=== PATIENT | male | born 1975 | race Two or more races ===

== ENCOUNTER 2018-01-16 09:49 | Inpatient (IN) | payer SELFPAY ==
[~2018-01-16] VITALS: Ht 170.2 cm; Wt 63.3 kg
--- NOTE | 2018-01-16 10:20 | EKG ---
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
[2018-01-16 10:41] LABS: BASO % 1 % (0-3); EOS # 0.4 x10^3/uL (0.0-0.7); EOS % 5 % (0-3); HEMOGLOBIN 7.7 g/dL (13.0-17.5); LYMPH # 0.7 x10^3/uL (1.0-4.8); LYMPH % 9 % (24-48); MEAN CORPUSCULAR HEMOGLOBIN 33 pg (25-35); MEAN CORPUSCULAR HGB CONC 37 g/dL (31-37); MEAN CORPUSCULAR VOLUME 90 fL (79-100); MONO # 0.7 x10^3/uL (0.0-1.1); MONO % 10 % (0-9); NEUT # 5.5 x10^3uL (1.8-7.7); NEUT % 75 % (31-73); PLATELET COUNT 158 x10^3/uL (140-400); RED BLOOD COUNT 2.31 x10^6/uL (4.30-5.70); RED CELL DISTRIBUTION WIDTH 13.4 % (11.5-14.5); WHITE BLOOD COUNT 7.3 x10^3/uL (4.0-11.0)
[2018-01-16 10:44] LABS: HEMATOCRIT 20.7 % (39.0-53.0)
--- NOTE | 2018-01-16 10:45 | RAD ---
CHEST AP ONLY dated 01/16/2018 10:05 AM. Comparison: None. Clinical Indication: Pain, dialysis pt. Spoke No Greek. . Findings: Single upright portable exam performed. Heart and mediastinal contours are within normal limits. There is a dual lumen dialysis catheter in place with distal tip projected to the right atrium. Lungs are somewhat hyperinflated but otherwise clear. No consolidation or pleural effusion. No pneumothorax. Impression: No acute radiographic abnormality. Electronically signed by: Rod Allen MD (01/16/2018 10:42 AM) [facility]
--- NOTE | 2018-01-16 10:51 | PHYS DOC ---
Adult General Chief Complaint Chief Complaint: weakness HPI HPI This is a pleasant 42-year-old male presenting to the emergency Department with "too many toxins in the blood". He primarily complains of generalized weakness throughout his body. He describes having mild burning sensation bilaterally in lower extremities which has been present for multiple months. He has a history of being dialyzed in the past at [facility] but having difficulty setting this up regularly as an outpatient. He reports urinating this morning and had a last bowel movement yesterday. Past medical history: History of hernia status post repair, history of CHF, history of kidney disease. Past surgical history: Hernia repair Social history: Denies smoking drinking or IV drug use Allergies: None Review of systems is negative for chest pain shortness of breath abdominal pain nausea vomiting fevers or chills. He denies neck stiffness confusion meningismus. All other review of systems is negative unless otherwise noted in history of present illness. ED course: 42-year-old gentleman with a history of kidney disease presenting to the emergency department with generalized weakness. On arrival the patient is afebrile with a normal heart rate. Saturating well on room air. On examination lungs are clear bilaterally. Abdomen is soft and nontender. Otherwise unremarkable examination. EKG obtained and reviewed by myself shows sinus rhythm with a regular rate. ST segments show mild T-wave inversions in the leads V4 and V5. No ST elevation. Does not meet STEMI criteria. Isolated ST depression in lead V4. Repolarization abnormality present. Blood work obtained along with chest x-ray. Hemoglobin is low at 7.7. No previous for comparison available this time. Acute renal failure present. I spoke with the training consultant Dr. alexis. I also spoke with Dr. Morales is the admitting hospitalist who accepts the patient for admission. Basic bridge orders placed. Review of Systems Review of Systems SEE ABOVE. Current Medications Current Medications Current Medications Medications (Trade) Dose Ordered Sig/Fer Start Time Stop Time Status Last Admin Dose Admin Morphine Sulfate (Morphine Sulfate) 2 mg PRN Q2HR PRN 01/16/18 11:30 01/17/18 11:29 Ondansetron HCl (Zofran) 4 mg PRN Q8HRS PRN 01/16/18 11:30 01/17/18 11:29 Allergies Allergies Allergies Coded Allergies Type Severity Reaction Last Updated Verified No Known Drug Allergies 01/16/18 No Physical Exam Physical Exam SEE ABOVE Constitutional: Well developed, well nourished, no acute distress, non-toxic appearance. [] HENT: Normocephalic, atraumatic, bilateral external ears normal, oropharynx moist, no oral exudates, nose normal. [] Eyes: PERRLA, EOMI, conjunctiva normal, no discharge. [] Neck: Normal range of motion, no tenderness, supple, no stridor. [] Cardiovascular:Heart rate regular rhythm, no murmur [] Lungs & Thorax: Bilateral breath sounds clear to auscultation [] Abdomen: Bowel sounds normal, soft, no tenderness, no masses, no pulsatile masses. [] Skin: Warm, dry, no erythema, no rash. [] Back: No tenderness, no CVA tenderness. [] Extremities: No tenderness, no cyanosis, no clubbing, ROM intact, no edema. [] Neurologic: Alert and oriented X 3, normal motor function, normal sensory function, no focal deficits noted. [] Psychologic: Affect normal, judgement normal, mood normal. [] Current Patient Data Vital Signs Vital Signs Date Time Temp Pulse Resp B/P (MAP) Pulse Ox O2 Delivery O2 Flow Rate FiO2 01/16/18 10:18 75 18 115/78 (90) 100 Room Air Lab Values Laboratory Tests Test 01/16/18 10:20 White Blood Count 7.3 x10^3/uL (4.0-11.0) Red Blood Count 2.31 x10^6/uL (4.30-5.70) L Hemoglobin 7.7 g/dL (13.0-17.5) L Hematocrit 20.7 % (39.0-53.0) *L Mean Corpuscular Volume 90 fL (79-100) Mean Corpuscular Hemoglobin 33 pg (25-35) Mean Corpuscular Hemoglobin Concent 37 g/dL (31-37) Red Cell Distribution Width 13.4 % (11.5-14.5) Platelet Count 158 x10^3/uL (140-400) Neutrophils (%) (Auto) 75 % (31-73) H Lymphocytes (%) (Auto) 9 % (24-48) L Monocytes (%) (Auto) 10 % (0-9) H Eosinophils (%) (Auto) 5 % (0-3) H Basophils (%) (Auto) 1 % (0-3) Neutrophils # (Auto) 5.5 x10^3uL (1.8-7.7) Lymphocytes # (Auto) 0.7 x10^3/uL (1.0-4.8) L Monocytes # (Auto) 0.7 x10^3/uL (0.0-1.1) Eosinophils # (Auto) 0.4 x10^3/uL (0.0-0.7) Basophils # (Auto) 0.0 x10^3/uL (0.0-0.2) Prothrombin Time 13.9 SEC (11.7-14.0) Prothrombin Time INR 1.1 (0.8-1.1) PTT 32 SEC (24-38) Sodium Level 125 mmol/L (136-145) L Potassium Level 3.4 mmol/L (3.5-5.1) L Chloride Level 75 mmol/L (98-107) L Carbon Dioxide Level 32 mmol/L (21-32) Anion Gap 18 (6-14) H Blood Urea Nitrogen 244 mg/dL (8-26) H Creatinine 15.8 mg/dL (0.7-1.3) H Estimated GFR (Cockcroft-Gault) 3.4 BUN/Creatinine Ratio 15 (6-20) Glucose Level 106 mg/dL (70-99) H Calcium Level 8.9 mg/dL (8.5-10.1) Total Bilirubin 0.5 mg/dL (0.2-1.0) Aspartate Amino Transferase (AST) 18 U/L (15-37) Alanine Aminotransferase (ALT) 16 U/L (16-63) Alkaline Phosphatase 193 U/L (46-116) H Total Protein 8.1 g/dL (6.4-8.2) Albumin 4.0 g/dL (3.4-5.0) Albumin/Globulin Ratio 1.0 (1.0-1.7) Lipase 493 U/L (73-393) H Laboratory Tests 01/16/18 10:20 Laboratory Tests 01/16/18 10:20 EKG EKG [] Radiology/Procedures Radiology/Procedures [] Course & Med Decision Making Course & Med Decision Making Pertinent Labs and Imaging studies reviewed. (See chart for details) [] Dragon Disclaimer Dragon Disclaimer This electronic medical record was generated, in whole or in part, using a voice recognition dictation system. Departure Departure Impression: Primary Impression: Acute renal failure Additional Impression: Anemia Disposition: ADMITTED INPATIENT Condition: STABLE Problem Qualifiers CASH ROMAN MD Jan 16, 2018 10:50
[2018-01-16 10:54] LABS: CALCIUM 8.9 mg/dL (8.5-10.1); CREATININE 15.8 mg/dL (0.7-1.3); GFR 3.4; POTASSIUM 3.4 mmol/L (3.5-5.1)
[2018-01-16 10:59] LABS: PROTHROMBIN TIME PATIENT 13.9 SEC (11.7-14.0)
[2018-01-16 11:07] LABS: TOTAL BILIRUBIN 0.5 mg/dL (0.2-1.0); TOTAL PROTEIN 8.1 g/dL (6.4-8.2)
[2018-01-16] MEDS ORDERED: ONDANSETRON PF 4 MG/2 ML VIAL. IV PRN (11:30)
[2018-01-16] MEDS ORDERED: MORPHINE SULFATE 2 MG/ML VIAL. IV PRN (11:30)
--- NOTE | 2018-01-16 13:07 | HP ---
ADMIT DATE: 01/16/2018 CHIEF COMPLAINT: I need dialysis. HISTORY OF PRESENT ILLNESS: The patient is a pleasant 42-year-old male who basically has end-stage renal disease. He has a dialysis port, but he does not have any insurance. He needs to be dialyzed. I think he is taking a lot of Lasix to help compensate for the situation because his BUN is greater than 200 and his sodium is actually low at 125 and his potassium is actually low at 3.2. I discussed the case with ER physician. We are going to admit the patient and get him dialyzed. PAST MEDICAL HISTORY: End-stage renal disease, diabetes, hypertension and dialysis catheter shunt port on the right chest. ALLERGIES: None. FAMILY HISTORY: Hypertension. SOCIAL HISTORY: He does not drink, smoke or take drugs. MEDICATIONS: Reviewed, please refer to the MRAD. REVIEW OF SYSTEMS: GENERAL: No history of weight change, weakness or fevers. SKIN: No bruising, hair changes or rashes. EYES: No blurred, double or loss of vision. NOSE AND THROAT: No history of nosebleeds, hoarseness or sore throat. HEART: No history of palpitations, chest pain or shortness of breath on exertion. LUNGS: Denies cough, hemoptysis, wheezing or shortness of breath. GASTROINTESTINAL: Denies changes in appetite, nausea, vomiting, diarrhea or constipation. GENITOURINARY: No history of frequency, urgency, hesitancy or nocturia. NEUROLOGIC: Denies history of numbness, tingling, tremor or weakness. PSYCHIATRIC: No history of panic, anxiety or depression. ENDOCRINE: No history of heat or cold intolerance, polyuria or polydipsia. EXTREMITIES: Denies muscle weakness, joint pain, pain on walking or stiffness. PHYSICAL EXAMINATION: VITAL SIGNS: Temperature afebrile, pulse 98, respirations 18, blood pressure 144/90. GENERAL: He is alert, cooperative. HEART: Normal S1, S2. LUNGS: Clear. ABDOMEN: Soft. EXTREMITIES: No edema. SKIN: No rashes. ENDOCRINE: No thyromegaly. LYMPHATICS: No cervical nodes. HEMATOPOIETIC: No bruising. LABORATORY DATA: Sodium is 125, BUN is greater than 200, creatinine 15. ASSESSMENT AND PLAN: End-stage renal disease in a middle-aged male who needs dialysis, but has insurance issues. We are going to admit the patient and get him dialyzed. Replace his potassium. Continue home meds. Renal diet. Frequent labs. BERLIN DEJESUS DO DR: AVIVA/rodrick JOB#: [id number] / [id number]
[2018-01-16 13:45] VITALS: BP 119/79
[2018-01-16] MEDS ORDERED: IV NORMAL SALINE 1000ML BAG 1,000 ML IV PRN ×2 (14:19)
[2018-01-16] MEDS ORDERED: DIALYSIS PATIENT. MC PRN (14:30)
--- NOTE | 2018-01-16 16:26 | PDOC2 ---
CONSULT Date of Consult Date of Consult DATE: 01/16/18 TIME: 16:02 Reason for Consult Reason for Consult: ESRD Identification/Chief Complaint Chief Complaint Doesnt speak or Understand Brazilian Source Source: Chart review, Patient History of Present Illness Reason for Visit: Pt Doesn't speak or Understand Brazilian- Hx Obtained from chart review and translation with help of RN Pt is 42-year-old male presenting to the ED with "too many toxins in the blood". He is c/o generalized weakness throughout his body and having mild burning sensation bilaterally in lower extremities which has been present for multiple months. He has a history of being dialyzed in the past at [facility] but having difficulty setting this up regularly as an outpatient. He reports Good UOP. Last HD Dec 24 No CP/SOB , No F/C/N/V/D He has been on HD for approx 4 Months - On and Off at [place] as No Insurance . He was told that his Kidneys have scarring leading to ESRD and HD He reports taking statin, allopurinol, Furosemide- doesnt know the mg/dose- has Not increased dose recently In ER Saturating well on room air. His BUN is greater than 200 and sodium 125 Current Problem List Problem List Problems Medical Problems: (1) Acute renal failure Status: Acute (2) Anemia Status: Acute Current Medications Current Medications Current Medications Ondansetron HCl (Zofran) 4 mg PRN Q8HRS PRN IV NAUSEA/VOMITING; Start at 11:30; Stop 01/17/18 at 11:29 Morphine Sulfate (Morphine Sulfate) 2 mg PRN Q2HR PRN IV PAIN; Start 01/16/18 at 11:30; Stop 01/17/18 at 11:29 Sodium Chloride 1,000 ml @ 1,000 mls/hr Q1H PRN IV hypotension; Start at 14:19; Stop 01/16/18 at 20:18 Sodium Chloride 1,000 ml @ 400 mls/hr Q2H30M PRN IV PATENCY; Start 01/16/18 at 14:19; Stop 01/17/18 at 02:18 Info (PHARMACY MONITORING -- do not chart) 1 each PRN DAILY PRN MC SEE COMMENTS ; Start 01/16/18 at 14:30 Allergies Allergies: Coded Allergies: No Known Drug Allergies (Unverified , 10/17/18) ROS Review of System As per HPI Physical Exam Physical Exam GEN: NAD HEENT- OM Dry Neck Supple CVS: RRR RESP: CTA , No Acc. Muscle Use GI: BS + ve, NO Bruit, Non Tender, Non Distended : No CVA tenderness, No Suprapubic Tenderness Neuro- Grossly normal Skin No Rash Vital Signs Vital Signs Date Time Temp Pulse Resp B/P (MAP) Pulse Ox O2 Delivery O2 Flow Rate FiO2 01/16/18 13:45 97.9 70 20 119/79 (92) 100 Nasal Cannula 2.0 97.9 Assessment & Plan ESRD- Last Dialysis at [place] Sep Very high BUN /Creat , Dialyses today - short run to avoid Dysequilibrium syndrome Dialysis again tomorrow K Mildly low Hyponatremia-Likely Chronic,Asymptomatic On Lasix, Expect to correct with Dialysis HTN -BP Low Holding lasix Anemia- Unknown baseline Please Obtain records from [place] Discussed 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 sociology professor Labs Labs Laboratory Tests Test 01/16/18 10:20 White Blood Count 7.3 x10^3/uL (4.0-11.0) Red Blood Count 2.31 x10^6/uL (4.30-5.70) Hemoglobin 7.7 g/dL (13.0-17.5) Hematocrit 20.7 % (39.0-53.0) Mean Corpuscular Volume 90 fL (79-100) Mean Corpuscular Hemoglobin 33 pg (25-35) Mean Corpuscular Hemoglobin Concent 37 g/dL (31-37) Red Cell Distribution Width 13.4 % (11.5-14.5) Platelet Count 158 x10^3/uL (140-400) Neutrophils (%) (Auto) 75 % (31-73) Lymphocytes (%) (Auto) 9 % (24-48) Monocytes (%) (Auto) 10 % (0-9) Eosinophils (%) (Auto) 5 % (0-3) Basophils (%) (Auto) 1 % (0-3) Neutrophils # (Auto) 5.5 x10^3uL (1.8-7.7) Lymphocytes # (Auto) 0.7 x10^3/uL (1.0-4.8) Monocytes # (Auto) 0.7 x10^3/uL (0.0-1.1) Eosinophils # (Auto) 0.4 x10^3/uL (0.0-0.7) Basophils # (Auto) 0.0 x10^3/uL (0.0-0.2) Prothrombin Time 13.9 SEC (11.7-14.0) Prothromb Time International Ratio 1.1 (0.8-1.1) Activated Partial Thromboplast Time 32 SEC (24-38) Sodium Level 125 mmol/L (136-145) Potassium Level 3.4 mmol/L (3.5-5.1) Chloride Level 75 mmol/L (98-107) Carbon Dioxide Level 32 mmol/L (21-32) Anion Gap 18 (6-14) Blood Urea Nitrogen 244 mg/dL (8-26) Creatinine 15.8 mg/dL (0.7-1.3) Estimated GFR (Cockcroft-Gault) 3.4 BUN/Creatinine Ratio 15 (6-20) Glucose Level 106 mg/dL (70-99) Calcium Level 8.9 mg/dL (8.5-10.1) Total Bilirubin 0.5 mg/dL (0.2-1.0) Aspartate Amino Transf (AST/SGOT) 18 U/L (15-37) Alanine Aminotransferase (ALT/SGPT) 16 U/L (16-63) Alkaline Phosphatase 193 U/L (46-116) Total Protein 8.1 g/dL (6.4-8.2) Albumin 4.0 g/dL (3.4-5.0) Albumin/Globulin Ratio 1.0 (1.0-1.7) Lipase 493 U/L (73-393) Laboratory Tests Test 01/16/18 10:20 White Blood Count 7.3 x10^3/uL (4.0-11.0) Red Blood Count 2.31 x10^6/uL (4.30-5.70) Hemoglobin 7.7 g/dL (13.0-17.5) Hematocrit 20.7 % (39.0-53.0) Mean Corpuscular Volume 90 fL (79-100) Mean Corpuscular Hemoglobin 33 pg (25-35) Mean Corpuscular Hemoglobin Concent 37 g/dL (31-37) Red Cell Distribution Width 13.4 % (11.5-14.5) Platelet Count 158 x10^3/uL (140-400) Neutrophils (%) (Auto) 75 % (31-73) Lymphocytes (%) (Auto) 9 % (24-48) Monocytes (%) (Auto) 10 % (0-9) Eosinophils (%) (Auto) 5 % (0-3) Basophils (%) (Auto) 1 % (0-3) Neutrophils # (Auto) 5.5 x10^3uL (1.8-7.7) Lymphocytes # (Auto) 0.7 x10^3/uL (1.0-4.8) Monocytes # (Auto) 0.7 x10^3/uL (0.0-1.1) Eosinophils # (Auto) 0.4 x10^3/uL (0.0-0.7) Basophils # (Auto) 0.0 x10^3/uL (0.0-0.2) Prothrombin Time 13.9 SEC (11.7-14.0) Prothromb Time International Ratio 1.1 (0.8-1.1) Activated Partial Thromboplast Time 32 SEC (24-38) Sodium Level 125 mmol/L (136-145) Potassium Level 3.4 mmol/L (3.5-5.1) Chloride Level 75 mmol/L (98-107) Carbon Dioxide Level 32 mmol/L (21-32) Anion Gap 18 (6-14) Blood Urea Nitrogen 244 mg/dL (8-26) Creatinine 15.8 mg/dL (0.7-1.3) Estimated GFR (Cockcroft-Gault) 3.4 BUN/Creatinine Ratio 15 (6-20) Glucose Level 106 mg/dL (70-99) Calcium Level 8.9 mg/dL (8.5-10.1) Total Bilirubin 0.5 mg/dL (0.2-1.0) Aspartate Amino Transf (AST/SGOT) 18 U/L (15-37) Alanine Aminotransferase (ALT/SGPT) 16 U/L (16-63) Alkaline Phosphatase 193 U/L (46-116) Total Protein 8.1 g/dL (6.4-8.2) Albumin 4.0 g/dL (3.4-5.0) Albumin/Globulin Ratio 1.0 (1.0-1.7) Lipase 493 U/L (73-393) Review All relevant outside records, renal labs, imaging studies, telemetry/EKG's were reviewed. Images Images CxR No acute radiographic abnormality. PALMER JOHNSON MD Jan 16, 2018 16:26
[2018-01-16 19:35] VITALS: BP 120/76
[2018-01-16 22:11] VITALS: BP 118/72
[2018-01-17] VITALS (8 sets, daily range): BP systolic 102–117; BP diastolic 66–81
[2018-01-17 04:39] LABS: CALCIUM 9.6 mg/dL (8.5-10.1); CREATININE 10.6 mg/dL (0.7-1.3); GFR 5.4; POTASSIUM 3.4 mmol/L (3.5-5.1)
[2018-01-17 04:48] LABS: BASO % 1 % (0-3); EOS # 0.4 x10^3/uL (0.0-0.7); EOS % 7 % (0-3); HEMOGLOBIN 7.1 g/dL (13.0-17.5); LYMPH # 0.6 x10^3/uL (1.0-4.8); LYMPH % 10 % (24-48); MEAN CORPUSCULAR HEMOGLOBIN 33 pg (25-35); MEAN CORPUSCULAR HGB CONC 37 g/dL (31-37); MEAN CORPUSCULAR VOLUME 91 fL (79-100); MONO # 0.8 x10^3/uL (0.0-1.1); MONO % 13 % (0-9); NEUT # 4.2 x10^3uL (1.8-7.7); NEUT % 69 % (31-73); PLATELET COUNT 143 x10^3/uL (140-400); RED BLOOD COUNT 2.12 x10^6/uL (4.30-5.70); RED CELL DISTRIBUTION WIDTH 13.6 % (11.5-14.5); WHITE BLOOD COUNT 6.1 x10^3/uL (4.0-11.0)
[2018-01-17 04:55] LABS: HEMATOCRIT 19.4 % (39.0-53.0)
[2018-01-17] MEDS ORDERED: IV NORMAL SALINE 1000ML BAG 1,000 ML IV PRN ×2 (07:37)
--- NOTE | 2018-01-17 07:43 | PDOC ---
PROGRESS NOTES Chief Complaint Chief Complaint Uremia ESRD HTN DM Anemia Bilateral foot weakness History of Present Illness History of Present Illness 42-year-old male who basically has end-stage renal disease. He has a dialysis port, but he does not have any insurance and is not in the country as a legal resident. Has been taking Lasix to help compensate for the situation because his BUN is greater than 200 and his sodium is actually low at 125 and his potassium is actually low at 3.2. Pt Doesn't speak or Understand Sinhala- Hx Obtained from chart review and translation with help of RN and stone banker phone as well as family. On ROS having mild burning sensation bilaterally in lower extremities which has been present for multiple months. He has a history of being dialyzed in the past at [facility] but having difficulty setting this up regularly as an outpatient. He reports Good UOP. Last HD Dec 24 No CP/SOB , No F/C/N/V/D He has been on HD for approx 4 Months - On and Off at [place] as No Insurance . He was told that his Kidneys have scarring leading to ESRD and HD He reports taking statin, allopurinol, Furosemide- doesnt know the mg/dose- has Not increased dose recently After dialysis his BUN came down to 117 today. His feet are a little stronger, feels a little better A/P: Uremia - likely needs another round of dialysis. Nephrology assistance appreciated ESRD - recent problem, mostly goes to [facility]. He cannot HTN - amlodipine helping DM - Diet controlled, he does not wish for sliding scale, he will need coupons for insulin when he leaves the hospital Diet - renal PPX - heparin FULL CODE Inpatient for life-threatening uremia Vitals Vitals Vital Signs Date Time Temp Pulse Resp B/P (MAP) Pulse Ox O2 Delivery O2 Flow Rate FiO2 01/17/18 03:49 99.2 86 16 103/67 (79) 99 Room Air 99.2 01/16/18 14:00 2.0 Physical Exam General: Alert, Oriented X3, Cooperative, Other (Cachectic appearing) Heart: Regular rate, Normal S1, Normal S2 Lungs: Clear, Wheezing Abdomen: Normal bowel sounds, Soft, No tenderness, No hepatosplenomegaly Extremities: No clubbing, No cyanosis, No edema, Normal pulses, No tenderness/ swelling Skin: No rashes, No breakdown, No significant lesion Labs LABS Laboratory Tests Test 01/16/18 10:20 01/17/18 04:00 01/17/18 04:05 White Blood Count 7.3 x10^3/uL (4.0-11.0) 6.1 x10^3/uL (4.0-11.0) Red Blood Count 2.31 x10^6/uL (4.30-5.70) 2.12 x10^6/uL (4.30-5.70) Hemoglobin 7.7 g/dL (13.0-17.5) 7.1 g/dL (13.0-17.5) Hematocrit 20.7 % (39.0-53.0) 19.4 % (39.0-53.0) Mean Corpuscular Volume 90 fL (79-100) 91 fL (79-100) Mean Corpuscular Hemoglobin 33 pg (25-35) 33 pg (25-35) Mean Corpuscular Hemoglobin Concent 37 g/dL (31-37) 37 g/dL (31-37) Red Cell Distribution Width 13.4 % (11.5-14.5) 13.6 % (11.5-14.5) Platelet Count 158 x10^3/uL (140-400) 143 x10^3/uL (140-400) Neutrophils (%) (Auto) 75 % (31-73) 69 % (31-73) Lymphocytes (%) (Auto) 9 % (24-48) 10 % (24-48) Monocytes (%) (Auto) 10 % (0-9) 13 % (0-9) Eosinophils (%) (Auto) 5 % (0-3) 7 % (0-3) Basophils (%) (Auto) 1 % (0-3) 1 % (0-3) Neutrophils # (Auto) 5.5 x10^3uL (1.8-7.7) 4.2 x10^3uL (1.8-7.7) Lymphocytes # (Auto) 0.7 x10^3/uL (1.0-4.8) 0.6 x10^3/uL (1.0-4.8) Monocytes # (Auto) 0.7 x10^3/uL (0.0-1.1) 0.8 x10^3/uL (0.0-1.1) Eosinophils # (Auto) 0.4 x10^3/uL (0.0-0.7) 0.4 x10^3/uL (0.0-0.7) Basophils # (Auto) 0.0 x10^3/uL (0.0-0.2) 0.0 x10^3/uL (0.0-0.2) Prothrombin Time 13.9 SEC (11.7-14.0) Prothromb Time International Ratio 1.1 (0.8-1.1) Activated Partial Thromboplast Time 32 SEC (24-38) Sodium Level 125 mmol/L (136-145) 135 mmol/L (136-145) Potassium Level 3.4 mmol/L (3.5-5.1) 3.4 mmol/L (3.5-5.1) Chloride Level 75 mmol/L (98-107) 93 mmol/L (98-107) Carbon Dioxide Level 32 mmol/L (21-32) 30 mmol/L (21-32) Anion Gap 18 (6-14) 12 (6-14) Blood Urea Nitrogen 244 mg/dL (8-26) 117 mg/dL (8-26) Creatinine 15.8 mg/dL (0.7-1.3) 10.6 mg/dL (0.7-1.3) Estimated GFR (Cockcroft-Gault) 3.4 5.4 BUN/Creatinine Ratio 15 (6-20) Glucose Level 106 mg/dL (70-99) 105 mg/dL (70-99) Calcium Level 8.9 mg/dL (8.5-10.1) 9.6 mg/dL (8.5-10.1) Total Bilirubin 0.5 mg/dL (0.2-1.0) Aspartate Amino Transf (AST/SGOT) 18 U/L (15-37) Alanine Aminotransferase (ALT/SGPT) 16 U/L (16-63) Alkaline Phosphatase 193 U/L (46-116) Total Protein 8.1 g/dL (6.4-8.2) Albumin 4.0 g/dL (3.4-5.0) Albumin/Globulin Ratio 1.0 (1.0-1.7) Lipase 493 U/L (73-393) Hepatitis B Surface Antigen Nonreactive (Nonreactive) Hepatitis B Surface Antibody Nonreactive Assessment and Plan Assessmemt and Plan Problems Medical Problems: (1) Acute renal failure Status: Acute (2) Anemia Status: Acute Comment Review of Relevant I have reviewed the following items francis (where applicable) has been applied. Labs Laboratory Tests Test 01/16/18 10:20 01/17/18 04:00 01/17/18 04:05 White Blood Count 7.3 x10^3/uL (4.0-11.0) 6.1 x10^3/uL (4.0-11.0) Red Blood Count 2.31 x10^6/uL (4.30-5.70) 2.12 x10^6/uL (4.30-5.70) Hemoglobin 7.7 g/dL (13.0-17.5) 7.1 g/dL (13.0-17.5) Hematocrit 20.7 % (39.0-53.0) 19.4 % (39.0-53.0) Mean Corpuscular Volume 90 fL (79-100) 91 fL (79-100) Mean Corpuscular Hemoglobin 33 pg (25-35) 33 pg (25-35) Mean Corpuscular Hemoglobin Concent 37 g/dL (31-37) 37 g/dL (31-37) Red Cell Distribution Width 13.4 % (11.5-14.5) 13.6 % (11.5-14.5) Platelet Count 158 x10^3/uL (140-400) 143 x10^3/uL (140-400) Neutrophils (%) (Auto) 75 % (31-73) 69 % (31-73) Lymphocytes (%) (Auto) 9 % (24-48) 10 % (24-48) Monocytes (%) (Auto) 10 % (0-9) 13 % (0-9) Eosinophils (%) (Auto) 5 % (0-3) 7 % (0-3) Basophils (%) (Auto) 1 % (0-3) 1 % (0-3) Neutrophils # (Auto) 5.5 x10^3uL (1.8-7.7) 4.2 x10^3uL (1.8-7.7) Lymphocytes # (Auto) 0.7 x10^3/uL (1.0-4.8) 0.6 x10^3/uL (1.0-4.8) Monocytes # (Auto) 0.7 x10^3/uL (0.0-1.1) 0.8 x10^3/uL (0.0-1.1) Eosinophils # (Auto) 0.4 x10^3/uL (0.0-0.7) 0.4 x10^3/uL (0.0-0.7) Basophils # (Auto) 0.0 x10^3/uL (0.0-0.2) 0.0 x10^3/uL (0.0-0.2) Prothrombin Time 13.9 SEC (11.7-14.0) Prothromb Time International Ratio 1.1 (0.8-1.1) Activated Partial Thromboplast Time 32 SEC (24-38) Sodium Level 125 mmol/L (136-145) 135 mmol/L (136-145) Potassium Level 3.4 mmol/L (3.5-5.1) 3.4 mmol/L (3.5-5.1) Chloride Level 75 mmol/L (98-107) 93 mmol/L (98-107) Carbon Dioxide Level 32 mmol/L (21-32) 30 mmol/L (21-32) Anion Gap 18 (6-14) 12 (6-14) Blood Urea Nitrogen 244 mg/dL (8-26) 117 mg/dL (8-26) Creatinine 15.8 mg/dL (0.7-1.3) 10.6 mg/dL (0.7-1.3) Estimated GFR (Cockcroft-Gault) 3.4 5.4 BUN/Creatinine Ratio 15 (6-20) Glucose Level 106 mg/dL (70-99) 105 mg/dL (70-99) Calcium Level 8.9 mg/dL (8.5-10.1) 9.6 mg/dL (8.5-10.1) Total Bilirubin 0.5 mg/dL (0.2-1.0) Aspartate Amino Transf (AST/SGOT) 18 U/L (15-37) Alanine Aminotransferase (ALT/SGPT) 16 U/L (16-63) Alkaline Phosphatase 193 U/L (46-116) Total Protein 8.1 g/dL (6.4-8.2) Albumin 4.0 g/dL (3.4-5.0) Albumin/Globulin Ratio 1.0 (1.0-1.7) Lipase 493 U/L (73-393) Hepatitis B Surface Antigen Nonreactive (Nonreactive) Hepatitis B Surface Antibody Nonreactive Laboratory Tests Test 01/16/18 10:20 01/17/18 04:00 01/17/18 04:05 White Blood Count 7.3 x10^3/uL (4.0-11.0) 6.1 x10^3/uL (4.0-11.0) Red Blood Count 2.31 x10^6/uL (4.30-5.70) 2.12 x10^6/uL (4.30-5.70) Hemoglobin 7.7 g/dL (13.0-17.5) 7.1 g/dL (13.0-17.5) Hematocrit 20.7 % (39.0-53.0) 19.4 % (39.0-53.0) Mean Corpuscular Volume 90 fL (79-100) 91 fL (79-100) Mean Corpuscular Hemoglobin 33 pg (25-35) 33 pg (25-35) Mean Corpuscular Hemoglobin Concent 37 g/dL (31-37) 37 g/dL (31-37) Red Cell Distribution Width 13.4 % (11.5-14.5) 13.6 % (11.5-14.5) Platelet Count 158 x10^3/uL (140-400) 143 x10^3/uL (140-400) Neutrophils (%) (Auto) 75 % (31-73) 69 % (31-73) Lymphocytes (%) (Auto) 9 % (24-48) 10 % (24-48) Monocytes (%) (Auto) 10 % (0-9) 13 % (0-9) Eosinophils (%) (Auto) 5 % (0-3) 7 % (0-3) Basophils (%) (Auto) 1 % (0-3) 1 % (0-3) Neutrophils # (Auto) 5.5 x10^3uL (1.8-7.7) 4.2 x10^3uL (1.8-7.7) Lymphocytes # (Auto) 0.7 x10^3/uL (1.0-4.8) 0.6 x10^3/uL (1.0-4.8) Monocytes # (Auto) 0.7 x10^3/uL (0.0-1.1) 0.8 x10^3/uL (0.0-1.1) Eosinophils # (Auto) 0.4 x10^3/uL (0.0-0.7) 0.4 x10^3/uL (0.0-0.7) Basophils # (Auto) 0.0 x10^3/uL (0.0-0.2) 0.0 x10^3/uL (0.0-0.2) Prothrombin Time 13.9 SEC (11.7-14.0) Prothromb Time International Ratio 1.1 (0.8-1.1) Activated Partial Thromboplast Time 32 SEC (24-38) Sodium Level 125 mmol/L (136-145) 135 mmol/L (136-145) Potassium Level 3.4 mmol/L (3.5-5.1) 3.4 mmol/L (3.5-5.1) Chloride Level 75 mmol/L (98-107) 93 mmol/L (98-107) Carbon Dioxide Level 32 mmol/L (21-32) 30 mmol/L (21-32) Anion Gap 18 (6-14) 12 (6-14) Blood Urea Nitrogen 244 mg/dL (8-26) 117 mg/dL (8-26) Creatinine 15.8 mg/dL (0.7-1.3) 10.6 mg/dL (0.7-1.3) Estimated GFR (Cockcroft-Gault) 3.4 5.4 BUN/Creatinine Ratio 15 (6-20) Glucose Level 106 mg/dL (70-99) 105 mg/dL (70-99) Calcium Level 8.9 mg/dL (8.5-10.1) 9.6 mg/dL (8.5-10.1) Total Bilirubin 0.5 mg/dL (0.2-1.0) Aspartate Amino Transf (AST/SGOT) 18 U/L (15-37) Alanine Aminotransferase (ALT/SGPT) 16 U/L (16-63) Alkaline Phosphatase 193 U/L (46-116) Total Protein 8.1 g/dL (6.4-8.2) Albumin 4.0 g/dL (3.4-5.0) Albumin/Globulin Ratio 1.0 (1.0-1.7) Lipase 493 U/L (73-393) Hepatitis B Surface Antigen Nonreactive (Nonreactive) Hepatitis B Surface Antibody Nonreactive Medications Current Medications Ondansetron HCl (Zofran) 4 mg PRN Q8HRS PRN IV NAUSEA/VOMITING; Start at 11:30; Stop 01/17/18 at 11:29 Morphine Sulfate (Morphine Sulfate) 2 mg PRN Q2HR PRN IV PAIN; Start 01/16/18 at 11:30; Stop 01/17/18 at 11:29 Sodium Chloride 1,000 ml @ 1,000 mls/hr Q1H PRN IV hypotension; Start at 14:19; Stop 01/16/18 at 20:18; Status DC Sodium Chloride 1,000 ml @ 400 mls/hr Q2H30M PRN IV PATENCY; Start 01/16/18 at 14:19; Stop 01/17/18 at 02:18; Status DC Info (PHARMACY MONITORING -- do not chart) 1 each PRN DAILY PRN MC SEE COMMENTS ; Start 01/16/18 at 14:30 Vitals/I & O Vital Sign - Last 24 Hours 01/16/18 01/16/18 01/16/18 01/16/18 10:18 10:31 11:01 11:31 Pulse 75 68 68 66 Resp 16 16 B/P (MAP) 115/78 (90) 110/69 (83) 117/80 (92) 110/73 (85) Pulse Ox 100 100 97 97 O2 Delivery Room Air Nasal Cannula O2 Flow Rate 2.0 01/16/18 01/16/18 01/16/18 01/16/18 12:01 12:38 13:01 13:31 Pulse 68 70 70 68 Resp 16 16 16 16 B/P (MAP) 115/78 (90) 118/81 (93) 112/77 (89) 115/76 (89) Pulse Ox 100 97 100 100 O2 Delivery Nasal Cannula Nasal Cannula O2 Flow Rate 2.0 2.0 01/16/18 01/16/18 01/16/18 01/16/18 13:45 14:00 19:35 22:11 Temp 97.9 98.9 99.0 97.9 98.9 99.0 Pulse 70 72 79 Resp 20 16 16 B/P (MAP) 119/79 (92) 120/76 (91) 118/72 (87) Pulse Ox 100 100 95 O2 Delivery Nasal Cannula Nasal Cannula Room Air Room Air O2 Flow Rate 2.0 2.0 01/17/18 03:49 Temp 99.2 99.2 Pulse 86 Resp 16 B/P (MAP) 103/67 (79) Pulse Ox 99 O2 Delivery Room Air Intake and Output 01/16/18 01/16/18 01/17/18 15:00 23:00 07:00 Intake Total 200 ml 300 ml Output Total 525 ml 125 ml Balance -325 ml 175 ml YAQUELIN VELEZ MD Jan 17, 2018 07:43
[2018-01-17] MEDS ORDERED: DIALYSIS PATIENT. MC PRN ×2 (07:45)
--- NOTE | 2018-01-17 11:06 | PDOC ---
SUBJECTIVE ROS Seen on HD, tolerating well OBJECTIVE Vital Signs Vital Signs Date Time Temp Pulse Resp B/P (MAP) Pulse Ox O2 Delivery O2 Flow Rate FiO2 01/17/18 10:00 98.0 75 14 102/72 98.0 01/17/18 08:03 Room Air 01/17/18 07:00 96 01/16/18 14:00 2.0 I & 0 Intake and Output 01/17/18 07:00 Intake Total 500 ml Output Total 650 ml Balance -150 ml Intake Oral 500 ml Output Urine Total 650 ml PHYSICAL EXAM Physical Exam GEN: NAD HEENT- OM Dry Neck Supple CVS: RRR RESP: CTA , No Acc. Muscle Use GI: BS + ve, NO Bruit, Non Tender, Non Distended : No CVA tenderness, No Suprapubic Tenderness Neuro- Grossly normal Skin No Rash DIAGNOSIS/ASSESSMENT Assessment & Plan ESRD- Last Dialysis was at [place] Sep Admitted from Er yesterday with Very high BUN /Creat , Dialyzed yesterday - short run to avoid Dysequilibrium syndrome Seen on HD today, tolerating well, continue as Ordered, DW child care group leader Hyponatremia-Likely Chronic,Asymptomatic was On Lasix, Improved today HTN -BP Low Holding lasix Hypokalemia- Mild Dialysis Today Anemia- Unknown baseline PRBC today x1 Work up as per primary Discussed Plan with child care group leader Cycle Touring Guide for OP dialysis arrangements COMMENT/RELEVANT DATA Meds Current Medications Medications (Trade) Dose Ordered Sig/Fer Start Time Stop Time Status Last Admin Dose Admin Info (PHARMACY MONITORING -- do not chart) 1 each PRN DAILY PRN 01/17/18 07:45 Morphine Sulfate (Morphine Sulfate) 2 mg PRN Q2HR PRN 01/16/18 11:30 01/17/18 11:29 Ondansetron HCl (Zofran) 4 mg PRN Q8HRS PRN 01/16/18 11:30 01/17/18 11:29 Sodium Chloride 1,000 ml @ 400 mls/hr Q2H30M PRN 01/17/18 07:37 01/17/18 19:36 Lab Laboratory Tests Test 01/17/18 04:00 01/17/18 04:05 White Blood Count 6.1 x10^3/uL (4.0-11.0) Red Blood Count 2.12 x10^6/uL (4.30-5.70) Hemoglobin 7.1 g/dL (13.0-17.5) Hematocrit 19.4 % (39.0-53.0) Mean Corpuscular Volume 91 fL (79-100) Mean Corpuscular Hemoglobin 33 pg (25-35) Mean Corpuscular Hemoglobin Concent 37 g/dL (31-37) Red Cell Distribution Width 13.6 % (11.5-14.5) Platelet Count 143 x10^3/uL (140-400) Neutrophils (%) (Auto) 69 % (31-73) Lymphocytes (%) (Auto) 10 % (24-48) Monocytes (%) (Auto) 13 % (0-9) Eosinophils (%) (Auto) 7 % (0-3) Basophils (%) (Auto) 1 % (0-3) Neutrophils # (Auto) 4.2 x10^3uL (1.8-7.7) Lymphocytes # (Auto) 0.6 x10^3/uL (1.0-4.8) Monocytes # (Auto) 0.8 x10^3/uL (0.0-1.1) Eosinophils # (Auto) 0.4 x10^3/uL (0.0-0.7) Basophils # (Auto) 0.0 x10^3/uL (0.0-0.2) Sodium Level 135 mmol/L (136-145) Potassium Level 3.4 mmol/L (3.5-5.1) Chloride Level 93 mmol/L (98-107) Carbon Dioxide Level 30 mmol/L (21-32) Anion Gap 12 (6-14) Blood Urea Nitrogen 117 mg/dL (8-26) Creatinine 10.6 mg/dL (0.7-1.3) Estimated GFR (Cockcroft-Gault) 5.4 Glucose Level 105 mg/dL (70-99) Calcium Level 9.6 mg/dL (8.5-10.1) Results All relevant outside records, renal labs, imaging studies, telemetry/EKG's were reviewed. PALMER JOHNSON MD Jan 17, 2018 11:06
[2018-01-18 03:55] VITALS: BP 103/66
[2018-01-18 07:00] VITALS: BP 106/68
[2018-01-18 08:38] LABS: ALBUMIN 3.7 g/dL (3.4-5.0); CALCIUM 9.7 mg/dL (8.5-10.1); CREATININE 7.3 mg/dL (0.7-1.3); GFR 8.3; PHOSPHORUS 4.6 mg/dL (2.6-4.7); POTASSIUM 3.6 mmol/L (3.5-5.1)
[2018-01-18 11:00] VITALS: BP 98/66
[2018-01-18] MEDS ORDERED: CALC667T PO (13:54)
[2018-01-18] MEDS ORDERED: FURO40TA4 PO (13:54)
--- NOTE | 2018-01-18 13:56 | PDOC ---
PROGRESS NOTES Chief Complaint Chief Complaint Uremia ESRD HTN DM Anemia Bilateral foot weakness History of Present Illness History of Present Illness 42-year-old male who basically has end-stage renal disease. He has a dialysis port, but he does not have any insurance and is not in the country as a legal resident. Has been taking Lasix to help compensate for the situation because his BUN is greater than 200 and his sodium is actually low at 125 and his potassium is actually low at 3.2. Pt Doesn't speak or Understand Spanish- Hx Obtained from chart review and translation with help of RN and assistant child care teacher phone as well as family. On ROS having mild burning sensation bilaterally in lower extremities which has been present for multiple months. He has a history of being dialyzed in the past at [facility] but having difficulty setting this up regularly as an outpatient. He reports Good UOP. Last HD Dec 24 No CP/SOB , No F/C/N/V/D He has been on HD for approx 4 Months - On and Off at [place] as No Insurance . He was told that his Kidneys have scarring leading to ESRD and HD He reports taking statin, allopurinol, Furosemide- doesnt know the mg/dose- has Not increased dose recently After dialysis his BUN came down to 63 today. His feet are a little stronger, feels a little better. He wishes to have permanent dialysis set up, advised we cannot assist in this. He is concerned about being reported to INS, would like to leave. A/P: Uremia - likely needs another round of dialysis. Nephrology assistance appreciated ESRD - recent problem, mostly goes to [facility]. He cannot HTN - amlodipine helping DM - Diet controlled, he does not wish for sliding scale, he will need coupons for insulin when he leaves the hospital Diet - renal PPX - heparin FULL CODE Inpatient for life-threatening uremia Vitals Vitals Vital Signs Date Time Temp Pulse Resp B/P (MAP) Pulse Ox O2 Delivery O2 Flow Rate FiO2 01/18/18 11:00 98.1 105 18 98/66 (77) 100 Room Air 98.1 Physical Exam General: Alert, Oriented X3, Cooperative, Other (Cachectic appearing) Heart: Regular rate, Normal S1, Normal S2 Lungs: Clear, Wheezing Abdomen: Normal bowel sounds, Soft, No tenderness, No hepatosplenomegaly Extremities: No clubbing, No cyanosis, No edema, Normal pulses, No tenderness/ swelling Skin: No rashes, No breakdown, No significant lesion Labs LABS Laboratory Tests Test 01/18/18 07:15 Sodium Level 141 mmol/L (136-145) Potassium Level 3.6 mmol/L (3.5-5.1) Chloride Level 99 mmol/L (98-107) Carbon Dioxide Level 28 mmol/L (21-32) Anion Gap 14 (6-14) Blood Urea Nitrogen 63 mg/dL (8-26) Creatinine 7.3 mg/dL (0.7-1.3) Estimated GFR (Cockcroft-Gault) 8.3 Glucose Level 93 mg/dL (70-99) Calcium Level 9.7 mg/dL (8.5-10.1) Phosphorus Level 4.6 mg/dL (2.6-4.7) Iron Level 84 ug/dL (65-175) Total Iron Binding Capacity 311 ug/dL (250-450) Iron Saturation 27 % (15-34) Ferritin 399 ng/mL (26-388) Albumin 3.7 g/dL (3.4-5.0) Assessment and Plan Assessmemt and Plan Problems Medical Problems: (1) Acute renal failure Status: Acute (2) Anemia Status: Acute Comment Review of Relevant I have reviewed the following items francis (where applicable) has been applied. Labs Laboratory Tests Test 01/17/18 04:00 01/17/18 04:05 01/18/18 07:15 White Blood Count 6.1 x10^3/uL (4.0-11.0) Red Blood Count 2.12 x10^6/uL (4.30-5.70) Hemoglobin 7.1 g/dL (13.0-17.5) Hematocrit 19.4 % (39.0-53.0) Mean Corpuscular Volume 91 fL (79-100) Mean Corpuscular Hemoglobin 33 pg (25-35) Mean Corpuscular Hemoglobin Concent 37 g/dL (31-37) Red Cell Distribution Width 13.6 % (11.5-14.5) Platelet Count 143 x10^3/uL (140-400) Neutrophils (%) (Auto) 69 % (31-73) Lymphocytes (%) (Auto) 10 % (24-48) Monocytes (%) (Auto) 13 % (0-9) Eosinophils (%) (Auto) 7 % (0-3) Basophils (%) (Auto) 1 % (0-3) Neutrophils # (Auto) 4.2 x10^3uL (1.8-7.7) Lymphocytes # (Auto) 0.6 x10^3/uL (1.0-4.8) Monocytes # (Auto) 0.8 x10^3/uL (0.0-1.1) Eosinophils # (Auto) 0.4 x10^3/uL (0.0-0.7) Basophils # (Auto) 0.0 x10^3/uL (0.0-0.2) Sodium Level 135 mmol/L (136-145) 141 mmol/L (136-145) Potassium Level 3.4 mmol/L (3.5-5.1) 3.6 mmol/L (3.5-5.1) Chloride Level 93 mmol/L (98-107) 99 mmol/L (98-107) Carbon Dioxide Level 30 mmol/L (21-32) 28 mmol/L (21-32) Anion Gap 12 (6-14) 14 (6-14) Blood Urea Nitrogen 117 mg/dL (8-26) 63 mg/dL (8-26) Creatinine 10.6 mg/dL (0.7-1.3) 7.3 mg/dL (0.7-1.3) Estimated GFR (Cockcroft-Gault) 5.4 8.3 Glucose Level 105 mg/dL (70-99) 93 mg/dL (70-99) Calcium Level 9.6 mg/dL (8.5-10.1) 9.7 mg/dL (8.5-10.1) Phosphorus Level 4.6 mg/dL (2.6-4.7) Iron Level 84 ug/dL (65-175) Total Iron Binding Capacity 311 ug/dL (250-450) Iron Saturation 27 % (15-34) Ferritin 399 ng/mL (26-388) Albumin 3.7 g/dL (3.4-5.0) Laboratory Tests Test 01/18/18 07:15 Sodium Level 141 mmol/L (136-145) Potassium Level 3.6 mmol/L (3.5-5.1) Chloride Level 99 mmol/L (98-107) Carbon Dioxide Level 28 mmol/L (21-32) Anion Gap 14 (6-14) Blood Urea Nitrogen 63 mg/dL (8-26) Creatinine 7.3 mg/dL (0.7-1.3) Estimated GFR (Cockcroft-Gault) 8.3 Glucose Level 93 mg/dL (70-99) Calcium Level 9.7 mg/dL (8.5-10.1) Phosphorus Level 4.6 mg/dL (2.6-4.7) Iron Level 84 ug/dL (65-175) Total Iron Binding Capacity 311 ug/dL (250-450) Iron Saturation 27 % (15-34) Ferritin 399 ng/mL (26-388) Albumin 3.7 g/dL (3.4-5.0) Medications Current Medications Ondansetron HCl (Zofran) 4 mg PRN Q8HRS PRN IV NAUSEA/VOMITING; Start at 11:30; Stop 01/17/18 at 11:29; Status DC Morphine Sulfate (Morphine Sulfate) 2 mg PRN Q2HR PRN IV PAIN; Start 01/16/18 at 11:30; Stop 01/17/18 at 11:29; Status DC Sodium Chloride 1,000 ml @ 1,000 mls/hr Q1H PRN IV hypotension; Start at 14:19; Stop 01/16/18 at 20:18; Status DC Sodium Chloride 1,000 ml @ 400 mls/hr Q2H30M PRN IV PATENCY; Start 01/16/18 at 14:19; Stop 01/17/18 at 02:18; Status DC Info (PHARMACY MONITORING -- do not chart) 1 each PRN DAILY PRN MC SEE COMMENTS ; Start 01/16/18 at 14:30; Status Cancel Sodium Chloride 1,000 ml @ 1,000 mls/hr Q1H PRN IV hypotension; Start at 07:37; Stop 01/17/18 at 13:36; Status DC Sodium Chloride 1,000 ml @ 400 mls/hr Q2H30M PRN IV PATENCY; Start 01/17/18 at 07:37; Stop 01/17/18 at 19:36; Status DC Info (PHARMACY MONITORING -- do not chart) 1 each PRN DAILY PRN MC SEE COMMENTS ; Start 01/17/18 at 07:45; Status UNV Info (PHARMACY MONITORING -- do not chart) 1 each PRN DAILY PRN MC SEE COMMENTS ; Start 01/17/18 at 07:45 Active Scripts Active Calcium Acetate 667 Mg Tablet 667 Mg PO TIDWMEALS 30 Days Furosemide 40 Mg Tablet 40 Mg PO BID 30 Days Vitals/I & O Vital Sign - Last 24 Hours 01/17/18 01/17/18 01/17/18 01/17/18 15:00 19:55 20:00 23:35 Temp 98.9 98.5 99.0 98.9 98.5 99.0 Pulse 94 80 90 Resp 18 B/P (MAP) 112/73 (86) 117/77 (90) 117/81 (93) Pulse Ox 99 97 96 O2 Delivery Room Air Room Air Room Air Room Air 01/18/18 01/18/18 01/18/18 01/18/18 03:55 07:00 08:10 11:00 Temp 98.9 99.4 98.1 98.9 99.4 98.1 Pulse 79 78 105 Resp 18 B/P (MAP) 103/66 (78) 106/68 (81) 98/66 (77) Pulse Ox 97 90 100 O2 Delivery Room Air Room Air Room Air Room Air Intake and Output 01/17/18 01/17/18 01/18/18 15:00 23:00 07:00 Intake Total 90 ml 1550 ml Output Total 400 ml 100 ml Balance 90 ml -400 ml 1450 ml YAQUELIN VELEZ MD Jan 18, 2018 13:56
--- NOTE | 2018-01-18 13:57 | PDOC3 ---
Discharge Summary Visit Information Date of Admission: Jan 16, 2018 Date of Discharge: Jan 18, 2018 Admitting Diagnosis: Uremia Final Diagnosis Problems Medical Problems: (1) Acute renal failure Status: Acute (2) Anemia Status: Acute Brief Hospital Course Allergies Allergies Coded Allergies Type Severity Reaction Last Updated Verified No Known Drug Allergies 01/16/18 No Vital Signs Vital Signs Date Time Temp Pulse Resp B/P (MAP) Pulse Ox O2 Delivery O2 Flow Rate FiO2 01/18/18 11:00 98.1 105 18 98/66 (77) 100 Room Air 98.1 Lab Results Laboratory Tests Test 01/17/18 04:00 01/17/18 04:05 01/18/18 07:15 White Blood Count 6.1 x10^3/uL (4.0-11.0) Red Blood Count 2.12 x10^6/uL (4.30-5.70) Hemoglobin 7.1 g/dL (13.0-17.5) Hematocrit 19.4 % (39.0-53.0) Mean Corpuscular Volume 91 fL (79-100) Mean Corpuscular Hemoglobin 33 pg (25-35) Mean Corpuscular Hemoglobin Concent 37 g/dL (31-37) Red Cell Distribution Width 13.6 % (11.5-14.5) Platelet Count 143 x10^3/uL (140-400) Neutrophils (%) (Auto) 69 % (31-73) Lymphocytes (%) (Auto) 10 % (24-48) Monocytes (%) (Auto) 13 % (0-9) Eosinophils (%) (Auto) 7 % (0-3) Basophils (%) (Auto) 1 % (0-3) Neutrophils # (Auto) 4.2 x10^3uL (1.8-7.7) Lymphocytes # (Auto) 0.6 x10^3/uL (1.0-4.8) Monocytes # (Auto) 0.8 x10^3/uL (0.0-1.1) Eosinophils # (Auto) 0.4 x10^3/uL (0.0-0.7) Basophils # (Auto) 0.0 x10^3/uL (0.0-0.2) Sodium Level 135 mmol/L (136-145) 141 mmol/L (136-145) Potassium Level 3.4 mmol/L (3.5-5.1) 3.6 mmol/L (3.5-5.1) Chloride Level 93 mmol/L (98-107) 99 mmol/L (98-107) Carbon Dioxide Level 30 mmol/L (21-32) 28 mmol/L (21-32) Anion Gap 12 (6-14) 14 (6-14) Blood Urea Nitrogen 117 mg/dL (8-26) 63 mg/dL (8-26) Creatinine 10.6 mg/dL (0.7-1.3) 7.3 mg/dL (0.7-1.3) Estimated GFR (Cockcroft-Gault) 5.4 8.3 Glucose Level 105 mg/dL (70-99) 93 mg/dL (70-99) Calcium Level 9.6 mg/dL (8.5-10.1) 9.7 mg/dL (8.5-10.1) Phosphorus Level 4.6 mg/dL (2.6-4.7) Iron Level 84 ug/dL (65-175) Total Iron Binding Capacity 311 ug/dL (250-450) Iron Saturation 27 % (15-34) Ferritin 399 ng/mL (26-388) Albumin 3.7 g/dL (3.4-5.0) Laboratory Tests Test 01/18/18 07:15 Sodium Level 141 mmol/L (136-145) Potassium Level 3.6 mmol/L (3.5-5.1) Chloride Level 99 mmol/L (98-107) Carbon Dioxide Level 28 mmol/L (21-32) Anion Gap 14 (6-14) Blood Urea Nitrogen 63 mg/dL (8-26) Creatinine 7.3 mg/dL (0.7-1.3) Estimated GFR (Cockcroft-Gault) 8.3 Glucose Level 93 mg/dL (70-99) Calcium Level 9.7 mg/dL (8.5-10.1) Phosphorus Level 4.6 mg/dL (2.6-4.7) Iron Level 84 ug/dL (65-175) Total Iron Binding Capacity 311 ug/dL (250-450) Iron Saturation 27 % (15-34) Ferritin 399 ng/mL (26-388) Albumin 3.7 g/dL (3.4-5.0) Brief Hospital Course 42-year-old male who basically has end-stage renal disease. He has a dialysis port, but he does not have any insurance and is not in the country as a legal resident. Has been taking Lasix to help compensate for the situation because his BUN is greater than 200 and his sodium is actually low at 125 and his potassium is actually low at 3.2. 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 On ROS having mild burning sensation bilaterally in lower extremities which has been present for multiple months. He has a history of being dialyzed in the past at [facility] but having difficulty setting this up regularly as an outpatient. He reports Good UOP. Last HD Dec 24 No CP/SOB , No F/C/N/V/D He has been on HD for approx 4 Months - On and Off at [facility] as No Insurance . He was told that his Kidneys have scarring leading to ESRD and HD He reports taking statin, allopurinol, Furosemide- doesnt know the mg/dose- has Not increased dose recently After dialysis his BUN came down to 117 after 1 session and to 63 day of d/c. His feet are a little stronger, feels a little better. He wishes to have permanent dialysis set up, advised we cannot assist in this. He is concerned about being reported to INS, would like to leave. A/P: Uremia - likely needs another round of dialysis. Nephrology assistance appreciated ESRD - recent problem, mostly goes to [facility]. He cannot HTN - amlodipine helping DM - Diet controlled, he does not wish for sliding scale, he will need coupons for insulin when he leaves the hospital Diet - renal PPX - heparin FULL CODE Inpatient for life-threatening uremia, to home per his wishes today Discharge Information Condition at Discharge: Improved Follow Up: Weeks (2) Disposition/Orders: D/C to Home Scheduled Calcium Acetate (Calcium Acetate) 667 Mg Tablet, 667 MG PO TIDWMEALS for DIALYSIS PATIENTS for 30 Days, #90 Prescribed by: YAQUELIN VELEZ MD on 01/18/18 1354 Furosemide (Furosemide) 40 Mg Tablet, 40 MG PO BID for 30 Days, #60 Prescribed by: YAQUELIN VELEZ MD on 01/18/18 1354 YAQUELIN VELEZ MD Jan 18, 2018 13:57
[2018-01-18 14:27] LABS: PHOSPHORUS PTH 4.6 mg/dL (2.5-4.5); PTH INTACT 199 pg/mL (15-65)
[2018-01-18 15:00] VITALS: BP 102/68
--- NOTE | 2018-01-18 16:16 | PDOC ---
SUBJECTIVE ROS He is feeling better OBJECTIVE Vital Signs Vital Signs Date Time Temp Pulse Resp B/P (MAP) Pulse Ox O2 Delivery O2 Flow Rate FiO2 01/18/18 11:00 98.1 105 18 98/66 (77) 100 Room Air 98.1 I & 0 Intake and Output 01/18/18 07:00 Intake Total 1640 ml Output Total 500 ml Balance 1140 ml Intake Oral 1640 ml Output Urine Total 500 ml PHYSICAL EXAM Physical Exam GEN: NAD HEENT- OM Dry Neck Supple CVS: RRR RESP: CTA , No Acc. Muscle Use GI: BS + ve, NO Bruit, Non Tender, Non Distended : No CVA tenderness, No Suprapubic Tenderness Neuro- Grossly normal Skin No Rash DIAGNOSIS/ASSESSMENT Assessment & Plan ESRD- Dialyzed at [facility] Sep Admitted from Er at [facility] on 01/16 with BUN 200+ /Increase Creat , Dialyzed x 2 Dialyses tomorrow Hyponatremia-Likely Chronic,Asymptomatic Normal today HTN -BP Low Holding lasix Hypokalemia- resolved Anemia- Unknown baseline PRBC x1 Work up as per primary As per Primary, Pt likely to be dced today COMMENT/RELEVANT DATA Meds Current Medications Medications (Trade) Dose Ordered Sig/Fer Start Time Stop Time Status Last Admin Dose Admin Info (PHARMACY MONITORING -- do not chart) 1 each PRN DAILY PRN 01/17/18 07:45 Morphine Sulfate (Morphine Sulfate) 2 mg PRN Q2HR PRN 01/16/18 11:30 01/17/18 11:29 DC Ondansetron HCl (Zofran) 4 mg PRN Q8HRS PRN 01/16/18 11:30 01/17/18 11:29 DC Sodium Chloride 1,000 ml @ 400 mls/hr Q2H30M PRN 01/17/18 07:37 01/17/18 19:36 DC Lab Laboratory Tests Test 01/18/18 07:15 Sodium Level 141 mmol/L (136-145) Potassium Level 3.6 mmol/L (3.5-5.1) Chloride Level 99 mmol/L (98-107) Carbon Dioxide Level 28 mmol/L (21-32) Anion Gap 14 (6-14) Blood Urea Nitrogen 63 mg/dL (8-26) Creatinine 7.3 mg/dL (0.7-1.3) Estimated GFR (Non- 9 (>59) Estimated GFR (Cockcroft-Gault) 8.3 Glucose Level 93 mg/dL (70-99) Calcium Level 9.7 mg/dL (8.5-10.1) Phosphorus Level 4.6 mg/dL (2.6-4.7) Iron Level 84 ug/dL (65-175) Total Iron Binding Capacity 311 ug/dL (250-450) Iron Saturation 27 % (15-34) Ferritin 399 ng/mL (26-388) Albumin 3.7 g/dL (3.4-5.0) EGFR 11 (>59) PTH (Intact) Specimen Description Comment (.) Parathyroid Hormone (Intact) 199 pg/mL (15-65) Calcium (PTH Intact) 10.0 mg/dL (8.7-10.2) Creatinine (PTH Intact) 6.80 mg/dL (0.76-1.27) Phosphorus (PTH Intact) 4.6 mg/dL (2.5-4.5) Results All relevant outside records, renal labs, imaging studies, telemetry/EKG's were reviewed. PALMER JOHNSON MD Jan 18, 2018 16:16
== END 2018-01-18 16:33 | disposition home or self-care (01) | DRG 683 ==
LOC: ER 09:49 → ED HOLD 11:56 → 2 NORTH 13:37 → 5 SOUTH 01-18 07:12
PROVIDERS: ADMIT Internal Medicine; ATTEND Internal Medicine
PROC: 30233N1 Transfusion of Nonautologous Red Blood Cells into Peripheral Vein, Percutaneous Approach (ICD-10-PCS; principal; 2018-01-16)
PROC: 5A1D70Z Performance of Urinary Filtration, Intermittent, Less than 6 Hours Per Day (ICD-10-PCS; 2018-01-16)
PROC: 5A1D70Z Performance of Urinary Filtration, Intermittent, Less than 6 Hours Per Day (ICD-10-PCS; 2018-01-17)
DX: N17.9 Acute kidney failure, unspecified (principal); I13.2 Hypertensive heart and chronic kidney disease with heart failure and with stage 5 chronic kidney disease, or end stage renal disease; E87.1 Hypo-osmolality and hyponatremia; D64.9 Anemia, unspecified; N18.6 End stage renal disease; E87.6 Hypokalemia; E11.22 Type 2 diabetes mellitus with diabetic chronic kidney disease; I50.9 Heart failure, unspecified; Z82.49 Family history of ischemic heart disease and other diseases of the circulatory system; Z99.2 Dependence on renal dialysis; Z79.899 Other long term (current) drug therapy
CPT/HCPCS: 36415; 71045; 80048; 80053; 80069; 82728; 83540; 83550; 83690; 83970; 85025; 85610; 85730; 86706; 86850; 86900; 86901; 86920; 87340; 93005; P9016; 99285-25